=== PATIENT | male | born 1980 | race Caucasian/White ===

== ENCOUNTER 2019-02-09 19:33 | Emergency (ER) | payer OTHER, MEDICAID, SELFPAY ==
[2019-02-09 19:42] VITALS: BP 171/112; PULSE 77; RESP 16; TEMP 36; O2SAT 97; BMI 30.1
--- NOTE | 2019-02-09 19:47 | ED.FALL ---
HPI - Fall General Chief Complaint: Fall Stated Complaint: fall on 12th, back side hurts alot Time Seen by Provider: 02/09/19 19:41 Source: patient Mode of arrival: Ambulatory Limitations: no limitations History of Present Illness HPI Narrative: Patient is a 38-year-old male who approximately 10 days ago fell while walking down some stairs landing on his right hip. He states since then he has had pain in his right buttocks area. He has tried ibuprofen and massage without much improvement. He has been ambulatory since the event. Related Data Previous Rx's Medication Instructions Recorded cyclobenzaprine 10 mg tablet 10 mg PO HS #30 tab 05/17/18 hydrocodone 5 mg-acetaminophen 325 1 tab PO QID #30 tab 06/06/18 mg tablet Allergies Allergy/AdvReac Type Severity Reaction Status Date / Time venom-honey bee Allergy Mild Unverified 06/28/17 11:51 [BEE VENOM (HONEY BEE)] Pain Contract Allergy Unknown Uncoded 06/28/17 11:51 Review of Systems Constitutional Constitutional: Denies fever(s) Cardiovascular Cardiovascular: Denies chest pain and Denies dyspnea Respiratory Respiratory: Denies dyspnea Gastrointestinal Gastrointestinal: Denies abdominal pain Musculoskeletal Musculoskeletal: Denies tingling Comments: Right hip pain Integumentary/Breasts Comments: Bruising to the right hip Neurologic Neurologic: Denies tingling and Denies paresthesias Hematologic/Lymphatic Hematologic/Lymphatic: Denies easy bleeding and Denies easy bruising Patient History Medical History Back pain of thoracolumbar region (07/31/13) Carpal tunnel syndrome of right wrist (07/31/13) Compression fracture of thoracic vertebra (Inactive) Right shoulder pain (07/31/13) Spondylolisthesis at L5-S1 level (03/17/15) Surgical History (Updated 07/18/17 @ 05:11 by Catrina Sauer DO) History of spinal fusion Family History (Updated 03/17/14 @ 00:00 by Catrina Sauer DO) Father Diabetes mellitus CAD (coronary artery disease) Mother Ovarian cancer Sister Crohn disease alcohol intake frequency: holidays/special occasions only Substance Use Type: does not use Exam Initial Vital Signs Initial Vital Signs: Vital Signs Temperature 96.8 F L 02/09/19 19:42 Pulse Rate 77 02/09/19 19:42 Respiratory Rate 16 02/09/19 19:42 Blood Pressure 171/112 H 02/09/19 19:42 Pulse Oximetry 97 02/09/19 19:42 Const General: cooperative and comfortable Orientation: alert and awake Resp Effort & Inspection: normal respiratory effort Back/Spine/Pelvis Cervical Spine: No cervical spasm Thoracic/Lumbar Spine: No thoracic spinal tenderness and No lumbar spinal tenderness Sacroiliac Joints: tender to palpation left Skin Rashes: no rashes Neuro General: alert, awake and oriented x3 Cognition: normal cognition Speech: speech normal Gait: normal gait Extrem General: normal to inspection and capillary refill normal Course Orders Ordered: ED Orders 02/09/19 19:50 XR hip w pel if done RT 2V Stat Vital Signs Vital signs: Vital Signs - 8 hr 02/09/19 19:42 Temperature 96.8 F L Pulse Rate 77 Respiratory Rate 16 Blood Pressure 171/112 H Pulse Oximetry 97 MDM - Fall Imaging Data X-ray hip: Radiologist's impression: [address] [address] XRay Report Signed Patient: Fransico Osborn GMR#: [id number] : 1980Acct:[id number] Age/Sex: 38 / MDate of Service: 02/09/19 Loc: ED Accession Number: [id number] Procedure: XR hip w pel if done RT 2V Ordering Provider: Saul Shaw D.O. PROCEDURE: XR HIP W PEL IF DONE RT 2V INDICATIONS: fall with hip pain TECHNIQUE: AP pelvis with lateral view(s) of the right hip(s). COMPARISON: None. FINDINGS: Bones: No fractures or dislocations. Pelvic ring appears intact. No suspicious bony lesions. No significant arthritic change. Soft tissues: The visualized bowel gas pattern is normal. No suspicious soft tissue calcifications. IMPRESSION: No evidence acute bony abnormality of the pelvis and right hip Dictated by: Kai Carter M.D. on 02/09/2019 at 20:11 Approved by: Kai Carter M.D. on 02/09/2019 at 20:12 [facility] Narrative Medical decision making narrative: Patient neurovascular intact. No fractures on the x-rays. I do suspect a deep soft tissue bruise. Discusses the patient. Expressed understanding and agreement plan. Discharge Plan Departure Prescriptions: No Action cyclobenzaprine 10 mg tablet 10 mg PO HS Qty: 30 RF: 0 hydrocodone-acetaminophen [[place]] 5-325 mg tablet 1 tab PO QID Qty: 30 RF: 0
--- NOTE | 2019-02-09 19:50 | DI.RAD.S_ITS ---
PROCEDURE: XR HIP W PEL IF DONE RT 2V INDICATIONS: fall with hip pain TECHNIQUE: AP pelvis with lateral view(s) of the right hip(s). COMPARISON: None. FINDINGS: Bones: No fractures or dislocations. Pelvic ring appears intact. No suspicious bony lesions. No significant arthritic change. Soft tissues: The visualized bowel gas pattern is normal. No suspicious soft tissue calcifications. IMPRESSION: No evidence acute bony abnormality of the pelvis and right hip Dictated by: Kai Carter M.D. on 02/09/2019 at 20:11 Approved by: Kai Carter M.D. on 02/09/2019 at 20:12
[2019-02-09 20:29] VITALS: BP 166/90; PULSE 74; RESP 16; O2SAT 99
== END 2019-02-09 20:29 | disposition home or self-care (01) ==
PROVIDERS: Emergency Provider Emergency Medicine; Family Provider Family Medicine; PCP Family Medicine
DX: M25.551 Pain in right hip (principal); W10.9XXA Fall (on) (from) unspecified stairs and steps, initial encounter
CPT/HCPCS: 73502; 99282; 99283

== ENCOUNTER → 2019-10-25 08:44 | Outpatient (CLI) | payer OTHER, MEDICAID, SELFPAY ==
[2019-10-25 10:20] LABS: Alanine Aminotransferase 35 IU/L (<50); Albumin 4.5 g/dL (3.5-5.0); Albumin Globulin Ratio 1.6 (1.0-2.8); Alkaline Phosphatase 77 U/L (38-126); Aspartate Aminotransferase 30 IU/L (17-59); BUN Creatinine Ratio 17.6 (6-22); Bilirubin Total 0.8 mg/dL (0.2-1.3); Blood Urea Nitrogen 19 mg/dL (9-20); Carbon Dioxide 28 mmol/L (22-32); Chloride 104 mmol/L (98-107); Cholesterol 234 mg/dL (140-199); Estimated Glomerular Filt Rate > 60.0 mL/min (>60); Globulin 2.9 g/dL (1.7-4.1); Glucose 97 mg/dL (70-100); HDL Cholesterol 65 mg/dL (40-60); HEMOLYSIS < 15 (0-50); LDL Cholesterol Calculated 147 mg/dL (<100); Potassium 4.9 mmol/L (3.4-5.1); Sodium 137 mmol/L (137-145); Total Protein 7.4 g/dL (6.3-8.2); Triglycerides 112 mg/dL (35-150)
== END ==
PROVIDERS: Family Provider Family Medicine; PCP Family Medicine; Referring Provider Family Medicine; Visit Provider Family Medicine
DX: E66.9 Obesity, unspecified (principal)
CPT/HCPCS: 36415; 80053; 80061

== ENCOUNTER → 2020-04-14 08:38 | Outpatient (CLI) | payer OTHER, MEDICAID, SELFPAY ==
[2020-04-14 10:12] LABS: Alanine Aminotransferase 61 IU/L (<50); Albumin 4.4 g/dL (3.5-5.0); Albumin Globulin Ratio 1.3 (1.0-2.8); Alkaline Phosphatase 67 U/L (38-126); Aspartate Aminotransferase 40 IU/L (17-59); BUN Creatinine Ratio 16.7 (6-22); Bilirubin Total 0.7 mg/dL (0.2-1.3); Blood Urea Nitrogen 18 mg/dL (9-20); Calcium 9.5 mg/dL (8.4-10.2); Carbon Dioxide 32 mmol/L (22-32); Chloride 103 mmol/L (98-107); Cholesterol 187 mg/dL (140-199); Estimated Glomerular Filt Rate > 60.0 mL/min (>60); Globulin 3.3 g/dL (1.7-4.1); Glucose 100 mg/dL (70-100); HDL Cholesterol 46 mg/dL (40-60); HEMOLYSIS < 15 (0-50); LDL Cholesterol Calculated 116 mg/dL (<100); Potassium 4.6 mmol/L (3.4-5.1); Sodium 138 mmol/L (137-145); Total Protein 7.7 g/dL (6.3-8.2); Triglycerides 124 mg/dL (35-150)
[2020-04-23 11:13] LABS: Aldosterone/Renin Activity Rat 0.3 (0.0-30.0); Plama Renin, LC/MS/MS 16.282 ng/mL/hr (0.167-5.380)
== END ==
PROVIDERS: Family Provider Family Medicine; PCP Family Medicine; Referring Provider Family Medicine; Visit Provider Family Medicine
DX: I10 Essential (primary) hypertension (principal); E66.9 Obesity, unspecified
CPT/HCPCS: 36415; 80053; 80061; 82088; 84244

== ENCOUNTER → 2020-04-27 10:18 | Outpatient (CLI) | payer OTHER, MEDICAID, SELFPAY ==
[2020-04-27 11:15] LABS: COVID19 -Nasal RAPID Negative (Negative)
== END ==
PROVIDERS: Family Provider Family Medicine; PCP Family Medicine; Visit Provider Physician Assistant
DX: Z20.828 Contact with and (suspected) exposure to other viral communicable diseases (principal)
CPT/HCPCS: 87635

== ENCOUNTER → 2020-04-29 08:19 | Outpatient (CLI) | payer OTHER, MEDICAID, SELFPAY ==
--- NOTE | 2020-04-29 09:09 | PM.TREADMILL ---
Cardiac Stress Test Report Referral & Results Date Patient Seen: 04/29/20 Time Patient Seen: 09:00 Requesting provider: Catrina Sauer Indication: Cardiomyopathy Rest ECG: NSR Procedure Note: Today following both written and verbal informed consent, the patient was exercised according to a standard Kirk protocol. The patient exercised for a total of 10 minutes 24 seconds achieving a maximum heart rate of 173. Patient's maximum systolic blood pressure was 184. This was an estimated 12.8 METs. Normal hemodynamic response to exercise. No signs or symptoms of angina. Presenting symptoms not reproduced on exercise. Near normal exercise capacity (JAH +10% on active scale). No EKG changes. Impression: Low probability for ischemia. Clarke treadmill score of 10 is correlated with 97% 5 year survival rate from cardiac causes of mortality. Please note: Actual ECG tracings can be found in the PACS system.
== END ==
PROVIDERS: Family Provider Family Medicine; PCP Family Medicine; Referring Provider Family Medicine; Visit Provider Family Medicine
DX: I42.9 Cardiomyopathy, unspecified (principal); R06.00 Dyspnea, unspecified; I10 Essential (primary) hypertension; Z82.49 Family history of ischemic heart disease and other diseases of the circulatory system
CPT/HCPCS: 93016; 93017; 93018

== ENCOUNTER 2020-05-30 19:59 | Emergency (ER) | payer OTHER, MEDICAID, SELFPAY ==
[2020-05-30 20:17] VITALS: BP 136/76; PULSE 79; RESP 14; TEMP 36.6; O2SAT 98; BMI 31.0
--- NOTE | 2020-05-30 20:31 | DI.RAD.S_ITS ---
PROCEDURE: XR FINGER RT MIN 2V INDICATIONS: Cut middle finger on skylight that shattered TECHNIQUE: AP hand, 2 views of the 3rd finger(s) acquired. COMPARISON: None. FINDINGS: Bones: No fractures or dislocations. No suspicious bony lesions. Soft tissues: No suspicious soft tissue calcifications. No radiopaque foreign body. IMPRESSION: No visualized acute fracture or dislocation. However, if clinical concern and/or pain persist, short interval imaging followup in 7-10 days is recommended, as occult injury cannot be definitively excluded. Dictated by: Aniyah Richardson M.D. on 05/30/2020 at 20:43 Approved by: Aniyah Richardson M.D. on 05/30/2020 at 20:44
--- NOTE | 2020-05-30 22:37 | ED_ITS ---
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 Bleeding has been controlled and he is up-to-date on tetanus. He describes no other injuries Related Data Previous Rx's Medication Instructions Recorded cyclobenzaprine 10 mg tablet 10 mg PO HS #30 tab 10/25/19 hydrocodone 5 mg-acetaminophen 325 1 tab PO QID #30 tab 10/25/19 mg tablet terbinafine HCl 250 mg tablet 250 mg PO DAILY #14 tab 01/16/20 triamcinolone acetonide 0.1 % 1 applictn TOP BID #30 gram 01/16/20 topical cream amlodipine 5 mg tablet 5 mg PO DAILY #90 tab 04/01/20 losartan 50 mg tablet 50 mg PO DAILY #90 tab 04/01/20 cephalexin 500 mg PO Q8H #15 cap 05/30/20 Allergies Allergy/AdvReac Type Severity Reaction Status Date / Time venom-honey bee Allergy Mild Unverified 04/01/20 16:34 [BEE VENOM (HONEY BEE)] Pain Contract Allergy Unknown Uncoded 04/01/20 16:34 Review of Systems Review of Systems Narrative: Remainder of review is otherwise unremarkable Patient History Medical History Back pain of thoracolumbar region (07/31/13) Carpal tunnel syndrome of right wrist (07/31/13) Compression fracture of thoracic vertebra Dyspnea Essential hypertension Hyperlipidemia Right shoulder pain (07/31/13) Spondylolisthesis at L5-S1 level (03/17/15) Tinea corporis Surgical History History of spinal fusion Family History Father Diabetes mellitus CAD (coronary artery disease) Mother Ovarian cancer Sister Crohn disease Social History Smoking Status: Former smoker Smoking Status: Former smoker alcohol intake frequency: holidays/special occasions only Substance Use Type: does not use Exam Narrative Exam Narrative: General: Alert appropriate in no acute distress Respiratory: Able to speak in full sentences, no obvious respiratory distress Skin: No obvious rashes, warm and dry Neurologic: Grossly intact no obvious asymmetries or abnormalities Psych: appropriate insight and affect, cooperative Extremity: Right finger with shallow/flap like laceration over the pad of the distal finger. Initial Vital Signs Initial Vital Signs: Vital Signs Temperature 97.8 F 05/30/20 20:17 Pulse Rate 79 05/30/20 20:17 Respiratory Rate 14 05/30/20 20:17 Blood Pressure 136/76 05/30/20 20:17 Pulse Oximetry 98 05/30/20 20:17 Procedures Laceration Repair Right middle finger: Site: hand Side (If applicable): right Size (cm): 3 Description: flap Depth: simple, single layer Local Anesthetic: lidocaine 1% Amount of anesthesia used (mL): 4 Pre-repair: wound explored Skin layer closed with: nylon Size (cm): 4-0 Number of sutures: 5 Course Orders Ordered: Discontinued Medications Lidocaine HCl (Lidocaine 1% (Pf)) 4 ml INJ NOW ONE Stop: 05/30/20 22:42 Vital Signs Vital signs: Vital Signs - 8 hr 05/30/20 23:29 Temperature 98.2 F Pulse Rate 64 Respiratory Rate 16 Blood Pressure 139/87 Pulse Oximetry 97 MDM - Wound/Laceration Imaging Data XR hand: Radiologist's Impression: FINDINGS: Bones: No fractures or dislocations. No suspicious bony lesions. Soft tissues: No suspicious soft tissue calcifications. No radiopaque foreign body. IMPRESSION: No visualized acute fracture or dislocation. However, if clinical concern and/or pain persist, short interval imaging followup in 7-10 days is recommended, as occult injury cannot be definitively excluded. Dictated by: Aniyah Richardson M.D. on 05/30/2020 at 20:43 MDM Narrative Medical decision making narrative: 40-year-old gentleman with flap-like laceration to the pad of the middle finger right hand. Once anesthetized the w ound is explored there is a mild bit of debrided easily removed from under the flap. The flap is thin enough that it may well and that being simply a biologic Band-Aid rather than actually read hearing completely. Reviewed this possibility with the patient. He will keep a bandage over the finger until sutures are out in approximately a week. He is safe for home discharge Discharge Plan Departure Patient Disposition: Home Clinical Impression: Laceration Instructions: DI for Laceration Repair Activity Restrictions/Additional Instructions: Thank you for coming in today There were 5 stitches to attach the edges of the flap back down to the finger. There was a bit of debris underneath that I cleaned out without difficulty. I am going to suggest to complete 5 days of Keflex, and antibiotic, to prevent infection. You need to sutures out on or about June 14. It seems like it is increasingly red draining or hurting more those are all signs of infection and it would be appropriate to return to the ER for further evaluation. Prescription has been [facility] electronically to [facility] Prescriptions: New cephalexin 500 mg capsule 500 mg PO Q8H Qty: 15 RF: 0 No Action terbinafine HCl 250 mg tablet 250 mg PO DAILY Qty: 14 RF: 0 triamcinolone acetonide 0.1 % cream 1 applictn TOP BID Qty: 30 RF: 0 hydrocodone-acetaminophen [[place]] 5-325 mg tablet 1 tab PO QID Qty: 30 RF: 0 cyclobenzaprine 10 mg tablet 10 mg PO HS Qty: 30 RF: 0 losartan 50 mg tablet 50 mg PO DAILY Qty: 90 RF: 3 amlodipine 5 mg tablet 5 mg PO DAILY Qty: 90 RF: 3 Referrals: Catrina Sauer DO [Primary Care Provider] -
--- NOTE | 2020-05-30 23:28 | PC.NURSE ---
Pts finger was sutured by Dr. Blandon. Pt tolerated procedure well.
[2020-05-30 23:29] VITALS: BP 139/87; PULSE 64; RESP 16; TEMP 36.8; O2SAT 97
== END 2020-05-30 23:31 | disposition home or self-care (01) ==
PROVIDERS: Emergency Provider Emergency Medicine; Family Provider Family Medicine; PCP Family Medicine
DX: S61.212A Laceration without foreign body of right middle finger without damage to nail, initial encounter (principal); W26.9XXA Contact with unspecified sharp object(s), initial encounter
CPT/HCPCS: 12002; 73140; 99281; 99283

== ENCOUNTER → 2020-06-13 10:00 | Outpatient (CLI) | payer OTHER, MEDICAID, SELFPAY | PROVIDERS: Family Provider Family Medicine; PCP Family Medicine; Referring Provider Family Medicine; Visit Provider Family Medicine | DX: Z82.49 Family history of ischemic heart disease and other diseases of the circulatory system (principal); Z84.81 Family history of carrier of genetic disease | CPT/HCPCS: 36415 ==

== ENCOUNTER → 2020-06-18 10:11 | Outpatient (CLI) | payer OTHER, MEDICAID, SELFPAY ==
--- NOTE | 2020-06-18 10:14 | DI.ECHO.S_ITS ---
[facility]---------+ [facility] +---------+ : : [address] : : : : [id number] : : : : Phone: [phone]+ Echocardiogram Report + + :Name: CHELSEY REYNOLDS Study Date: 06/18/2020 Height: 69 in : :[facility] ReadingLocation: Weight: 210 lb : : Gender: Male BSA: 2.1 m2 : :: 1980 Age: 40 yrs BP: 156/92 mmHg: :Reason For Study: Cardiomyopathy, Dilated : :Ordering Physician: MAGDI, : :SOFIE Performed By: Rafael Elliott : :Referring: SOFIE FAIRBANKS : + + Interpretation Summary The left ventricle is normal in size and wall thickness. The ejection fraction is estimated to be 60-65%. The right ventricle is normal in size and function. No significant valvular pathology seen. The IVC is of normal diameter and collapses greater than 50% with a sniff. This suggests a low right atrial pressure of 3 mm Hg. Procedure: A two-dimensional transthoracic echocardiogram with color flow and Doppler was performed. The study quality was technically adequate. There is no prior echocardiogram noted for this patient. The patient was in sinus rhythm with heart rates between 57-74 bpm during the exam. Left Ventricle: The left ventricle is normal in size and wall thickness. There is no thrombus. Left ventricular systolic function is normal. The ejection fraction is estimated to be 60-65%. There are no focal wall motion abnormalities. MV E/A: 1.7 Med Peak E' Elvin: 9.2 cm/sec E/E' med: 12.1. Right Ventricle: The right ventricle is normal in size and function. Atria: Both atria are normal in size. There is no Doppler evidence for an interatrial shunt. Mitral Valve: The mitral valve is normal in structure and function. There is trace mitral regurgitation. Aortic Valve: The aortic valve is normal in structure and function. There is no aortic valve stenosis. No aortic regurgitation is present. Tricuspid Valve: The tricuspid valve is normal in structure and function. There is trace tricuspid regurgitation. The right ventricular systolic pressure is estimated to be at least 30 mmHg based on an estimated right atrial pressure of 3 mm Hg. Pulmonic Valve: The pulmonic valve is not well seen, but is grossly normal. There is trace pulmonic regurgitation. Great Vessels: The aortic root is normal size. The dimensions of the ascending aorta are normal. The IVC is of normal diameter and collapses greater than 50% with a sniff. This suggests a low right atrial pressure of 3 mm Hg. Pericardium/ Pleura There is no pericardial effusion. There is no pleural effusion. MMode/2D Measurements & Calculations LVIDd: 5.2 cm LVOT diam: 2.1 cm IVSd: 0.94 cm Ao root diam: 3.0 cm LVPWd: 0.93 cm asc Aorta Diam: 3.0 cm LV bailey. diameter/BSA (cm/m^2): 2.5 LA A2 area: 17.7 cm2 RA long axis: 4.1 cm LA A4 area: 16.9 cm2 RA area: 13.6 cm2 LA length (vol): 4.9 cm RA vol: 38.0 ml LA vol: 51.2 ml RA : 18.0 ml/m2 LA vol index: 24.3 ml/m2 IVC diam: 1.8 cm RVD1 (basal): 3.3 cm Doppler Measurements & Calculations Ao V2 max: 150.0 cm/sec LVOT Max Elvin: 140.5 cm/sec Ao V2 mean: 105.4 cm/sec LV V1 max P.9 mmHg Ao max P.0 mmHg LV V1 VTI: 28.2 cm Ao mean P.0 mmHg RUFINA(I,D): 3.2 cm2 Ao V2 VTI: 30.4 cm RUFINA(V,D): 3.2 cm2 sev ratio: 0.93 RUFINA indexed to BSA (cm^2/m^2): 1.5 MV E max elvin: 111.0 cm/sec TR max elvin: 259.9 cm/sec MV A max elvin: 65.3 cm/sec TR max P.0 mmHg MV E/A: 1.7 PA V2 max: 130.7 cm/sec Med Peak E' Elvin: 9.2 cm/sec PA V2 mean: 89.2 cm/sec E/E' med: 12.1 PA mean P.7 mmHg Lat Peak E' Elvin: 14.5 cm/sec PA pr(Accel): 43.7 mmHg E/E' lat: 7.6 E/e' average: 9.9 MV dec time: 0.20 sec SV(LVOT): 97.2 ml Reading Physician:05:46 PM
== END ==
PROVIDERS: Family Provider Family Medicine; PCP Family Medicine; Referring Provider Family Medicine; Visit Provider Family Medicine
DX: R06.00 Dyspnea, unspecified (principal); I10 Essential (primary) hypertension; Z82.49 Family history of ischemic heart disease and other diseases of the circulatory system
CPT/HCPCS: 93306

== ENCOUNTER → 2021-01-04 15:47 | Outpatient (CLI) | payer OTHER, MEDICAID, SELFPAY ==
[2021-01-04 16:58] LABS: COVID19 -Nasal RAPID POSITIVE (Negative)
== END ==
PROVIDERS: Family Provider Family Medicine; PCP Family Medicine; Visit Provider Physician Assistant
DX: U07.1 COVID-19 (principal)
CPT/HCPCS: 87635

== ENCOUNTER → 2021-01-04 16:55 | Outpatient (CLI) | payer OTHER, MEDICAID, SELFPAY ==
--- NOTE | 2021-01-04 16:57 | DI.RAD.S_ITS ---
PROCEDURE: XR CHEST 2V INDICATIONS: deep cough x1 week, home +COVID, pending PCR TECHNIQUE: 2 views of the chest were acquired. COMPARISON: None. FINDINGS: Surgical changes and devices: None. Lungs and pleura: Lungs are clear. No pleural effusions or pneumothorax. Mediastinum: Mediastinal contours are normal. Heart size is normal. Bones and chest wall: No suspicious bony abnormalities. Soft tissues appear unremarkable. IMPRESSION: No acute cardiopulmonary process demonstrated radiographically. Dictated by: Gopi Saldivar M.D. on 01/04/2021 at 17:11 Approved by: Gopi Saldivar M.D. on 01/04/2021 at 17:11
== END ==
PROVIDERS: Family Provider Family Medicine; PCP Family Medicine; Referring Provider Physician Assistant; Visit Provider Physician Assistant
DX: U07.1 COVID-19 (principal); R05.9 Cough, unspecified
CPT/HCPCS: 71046; 87635

== ENCOUNTER → 2021-09-23 15:58 | Outpatient (CLI) | payer OTHER, MEDICAID, SELFPAY ==
[2021-09-23 17:15] LABS: Alanine Aminotransferase 26 IU/L (<50); Albumin 4.2 g/dL (3.5-5.0); Albumin Globulin Ratio 1.3 (1.0-2.8); Alkaline Phosphatase 66 U/L (38-126); Aspartate Aminotransferase 28 IU/L (17-59); BUN Creatinine Ratio 14.3 (6-22); Bilirubin Total 0.6 mg/dL (0.2-1.3); Blood Urea Nitrogen 16 mg/dL (9-20); Calcium 8.8 mg/dL (8.4-10.2); Carbon Dioxide 26 mmol/L (22-32); Chloride 106 mmol/L (98-107); Cholesterol 227 mg/dL (140-199); Estimated Glomerular Filt Rate > 60 mL/min (>60); Globulin 3.2 g/dL (1.7-4.1); Glucose 75 mg/dL (70-100); HDL Cholesterol 48 mg/dL (40-60); HEMOLYSIS 17 (0-50); LDL Cholesterol Calculated 111 mg/dL (<100); Potassium 4.3 mmol/L (3.4-5.1); Sodium 142 mmol/L (137-145); Total Protein 7.4 g/dL (6.3-8.2); Triglycerides 340 mg/dL (35-150)
== END ==
PROVIDERS: Family Provider Family Medicine; PCP Family Medicine; Referring Provider Family Medicine; Visit Provider Family Medicine
DX: I10 Essential (primary) hypertension (principal); E78.5 Hyperlipidemia, unspecified
CPT/HCPCS: 36415; 80053; 80061

== ENCOUNTER 2022-05-25 00:06 | Emergency (ER) | payer OTHER, MEDICAID, SELFPAY ==
[2022-05-25 00:14] VITALS: BP 136/88; PULSE 73; RESP 17; TEMP 36.8; O2SAT 99
[2022-05-25] MEDS: PROPARACAINE 0.5% OPHTH SOL 1 DROPS EYE-LEFT (00:24)
[2022-05-25] MEDS: FLUORESCEIN 1 MG STRIP EYE-RIGHT (00:24)
--- NOTE | 2022-05-25 00:53 | ED_ITS ---
HPI - General Adult General Chief complaint: Eye Problems Stated complaint: something in LT eye possible metal or wood shaving Time Seen by Provider: 05/25/22 00:31 Source: patient Mode of arrival: Ambulatory Limitations: no limitations History of Present Illness HPI narrative: Patient is a 42-year-old male who is here for evaluation of potential foreign body in his left eye. Patient states that earlier the day he was working with both metal and wood. He was not wearing safety goggles at the time. He states he feels like there is something in his left eye. He is no prior eye surgeries. Related Data Previous Rx's Medication Instructions Recorded cyclobenzaprine 10 mg tablet 10 mg PO HS PRN muscle spasm #30 05/06/21 tabs hydrocodone 5 mg-acetaminophen 325 1 tab PO QID pain #30 tabs 02/05/22 mg tablet amlodipine 5 mg tablet 5 mg PO DAILY #90 tabs 04/27/22 losartan 50 mg tablet 50 mg PO DAILY #90 tabs 04/27/22 erythromycin 5 mg/gram (0.5 %) eye 0.5 inch EYE-LEFT TID 2 days #3.5 05/25/22 ointment grams Allergies Allergy/AdvReac Type Severity Reaction Status Date / Time venom-honey bee Allergy Severe Swelling Verified 05/25/22 00:24 [BEE VENOM (HONEY BEE)] of Lip/Tongue/Throat Review of Systems Eyes Eyes: Reports system reviewed and no additional complaints, except as documented ENT Ears, Nose, Mouth, and Throat: Reports system reviewed and no additional complaints, except as documented Integumentary/Breasts Skin/Breast: Reports system reviewed and no additional complaints, except as d ocumented Patient History Medical History Back pain of thoracolumbar region (07/31/13) Carpal tunnel syndrome of right wrist (07/31/13) Compression fracture of thoracic vertebra COVID-19 Essential hypertension Hyperlipidemia Obesity (BMI 30.0-34.9) Right shoulder pain (07/31/13) Spondylolisthesis at L5-S1 level (03/17/15) Surgical History History of spinal fusion Family History Father Diabetes mellitus CAD (coronary artery disease) Mother Ovarian cancer Sister Crohn disease Social History Smoking Status: Former smoker Smoking Status: Former smoker alcohol intake frequency: holidays/special occasions only Substance Use Type: does not use Exam Initial Vital Signs Initial Vital Signs: Vital Signs Temperature 98.2 F 05/25/22 00:14 Pulse Rate 73 05/25/22 00:14 Respiratory Rate 17 05/25/22 00:14 Blood Pressure 136/88 05/25/22 00:14 Pulse Oximetry 99 05/25/22 00:14 Oxygen Delivery Method Room Air 05/25/22 00:14 Const General: cooperative and healthy appearing Eyes Pupils: PERRL EOM: EOM intact bilaterally Other: Patient does have a metal foreign body in the left eye. No uptake with fluorescein staining. No signs of conjunctivitis. No indication open globe. Conjunctiva are unremarkable. Skin General: no rashes or lesions noted Procedures Foreign Body EYE Location: eye (L) Topical anesthetic used: proparacaine Foreign body: metal Evidence of corneal penetration: No Technique: cotton tip swab and electric gavi Procedure performed under: direct visualization with magnification and slit-lamp Post-procedure medication: ophthalmic antibiotic Patient tolerated procedure: well Complications: residual rust ring Course Orders Ordered: Discontinued Medications Diphtheria/Tetanus/Acell Pertussis (Diph,Pertuss(Acell),Tet Vac/Pf 0.5 Ml Syringe) 0.5 ml IM .ONCE ONE Stop: 05/25/22 00:10 Last Admin: 05/25/22 00:15 Dose: Not Given Documented By: BERNARD Erythromycin (Erythromycin Ophth 1 Gm Oint) 1 applic EYE-LEFT NOW ONE Stop: 05/25/22 00:54 Last Admin: 05/25/22 01:01 Dose: 1 applic Documented By: DAVID Fluorescein Sodium (Fluorescein 1 Mg Strip) 1 mg EYE-RIGHT NOW ONE Stop: 05/25/22 00:11 Last Admin: 05/25/22 00:24 Dose: 1 mg Documented By: RB Proparacaine HCl (Proparacaine 0.5% Ophth [place]) 1 drops EYE-LEFT PRN PRN PRN Reason: Pain, Mild (1-3) Last Admin: 05/25/22 00:24 Dose: 1 drops Documented By: RB Vital Signs Vital signs: Vital Signs - 8 hr 05/25/22 00:14 Temperature 98.2 F Pulse Rate 73 Respiratory Rate 17 Blood Pressure 136/88 Pulse Oximetry 99 Oxygen Delivery Method Room Air Medical Decision Making MDM Narrative Medical decision making narrative: Patient with a fairly obvious small foreign body in the left eye that was primarily removed with cotton tip applicator under direct visualization and magnification. There was a small residual piece there which was then evaluated under slit-lamp. This was the rust ring. Vast majority of this was removed with a bur. Patient tolerated the procedure well. There is no indication of perforation. An extensive review of the rest of his eye reveals no other foreign bodies either under the lower eyelid or under the upper eyelid. Will place the patient on erythromycin. He was given return precautions and follow- up instructions. He expressed understanding and agreement. Discharge Plan Departure Patient Disposition: Home Clinical Impression: Foreign body in eye Instructions: DI for Foreign Body in the Eye Activity Restrictions/Additional Instructions: I do recommend that you use the antibiotic ointment as directed. Contact your primary doctor for a follow-up. Return to the emergency department for any new or worsening symptoms. Prescriptions: New erythromycin 5 mg/gram (0.5 %) ointment 0.5 inch EYE-LEFT TID 2 Days Qty: 3.5 0RF No Action hydrocodone-acetaminophen 5-325 mg tablet 1 tab PO QID Qty: 30 0RF Rx Instructions: New Rx amlodipine 5 mg tablet 5 mg PO DAILY Qty: 90 0RF Rx Instructions: APPOINTMENT DUE FOR FURTHER REFILLS. 04/27/22 losartan 50 mg tablet 50 mg PO DAILY Qty: 90 0RF Rx Instructions: APPOINTMENT DUE FOR FURTHER REFILLS. 04/27/22 cyclobenzaprine 10 mg tablet 10 mg PO HS PRN (Reason: muscle spasm) Qty: 30 3RF Referrals: Latonya Jones DO [Primary Care Provider] - Stand Alone Forms: Patient Portal/API
[2022-05-25] MEDS: ERYTHROMYCIN OPHTH 1 GM OINT 1 APPLIC EYE-LEFT (01:01)
== END 2022-05-25 01:10 | disposition home or self-care (01) ==
PROVIDERS: Emergency Provider Emergency Medicine; Family Provider Family Medicine; PCP Family Medicine
DX: T15.92XA Foreign body on external eye, part unspecified, left eye, initial encounter (principal)
CPT/HCPCS: 65222; 99282

== ENCOUNTER → 2023-03-17 07:56 | Outpatient (CLI) | payer OTHER, MEDICAID, SELFPAY ==
--- NOTE | 2023-03-17 | DI.US.S_ITS ---
ULTRASOUND OF RIGHT BREAST AND AXILLA: 03/17/2023 CLINICAL: Palpable right breast lump. No prior exams were available for comparison. Ultrasound of the right breast axilla was performed. There is a 6.8 cm x 2.3 cm x 5.4 cm oval mass with a circumscribed margin in the right breast at 8 o'clock anterior depth 11 cm from the nipple. This correlates as palpated. No significant abnormalities were seen sonographically in the right axilla. IMPRESSION: PROBABLY BENIGN The 6.8 cm x 2.3 cm x 5.4 cm oval mass in the right breast is probably benign. This is most commonly a lipoma, however, some malignant masses such as liposarcoma can have a similar appearance. Clinical followup recommended. A follow-up ultrasound in 3 months is recommended. If there is a history of enlargement or concerning symptoms, consider sampling or advanced imaging with CT or MRI. This is discussed with the patient at time of exam. This exam was interpreted at Station ID: [id number]. Electronically Signed By: Kenney tubbs/:03/17/2023 08:24:49 letter sent: Followup Recommended Ultrasound BI-RADS: 3 Probably benign
== END ==
LOC: US 07:56
PROVIDERS: Family Provider Family Medicine; Referring Provider Family Medicine; Visit Provider Family Medicine
DX: R92.2 Inconclusive mammogram (principal); N63.13 Unspecified lump in the right breast, lower outer quadrant
CPT/HCPCS: 76642

== ENCOUNTER → 2023-03-22 09:05 | Outpatient (CLI) | payer OTHER, MEDICAID, SELFPAY ==
[2023-03-22 10:39] LABS: Add Manual Diff / Slide Review NO; Basophils Absolute Auto 100 /uL (0-100); Basophils Percent Auto 0.9 % (0-2); Eosinophils Absolute Auto 500 /uL (0-450); Eosinophils Percent Auto 3.8 % (2-4); Hematocrit 44.4 % (41-53); Hemoglobin 15.1 g/dL (13.5-17.5); Lymphocytes Absolute Auto 2000 /uL (1100-4500); Lymphocytes Percent Auto 16.6 % (25-40); Mean Corpuscular HGB Conc 34.1 % (30-36); Mean Corpuscular Hemoglobin 29.4 PG (26-34); Mean Corpuscular Volume 86.2 fL (80-100); Monocytes Absolute Auto 900 /uL (0-900); Monocytes Percent Auto 7.5 % (3-14); Neutrophils Absolute Auto 8600 /uL (1500-7000); Neutrophils Percent Auto 71.2 % (50-75); Platelet Count 265 X10^3/uL (150-400); Red Blood Cell Count 5.15 X10^6/uL (4.5-5.9); Red Cell Distribution Width 13.8 % (11.6-14.8); White Blood Cell Count 12.1 X10^3/uL (4.5-11.0)
[2023-03-22 10:52] LABS: Hemoglobin A1C% w Est Avg Glu 5.7 % (4.0-6.0)
[2023-03-22 11:23] LABS: Alanine Aminotransferase 31 IU/L (<50); Albumin 4.2 g/dL (3.5-5.0); Albumin Globulin Ratio 1.3 (1.0-2.8); Alkaline Phosphatase 85 U/L (38-126); BUN Creatinine Ratio 18.3 (6-22); Bilirubin Total 0.7 mg/dL (0.2-1.3); Blood Urea Nitrogen 19 mg/dL (9-20); Calcium 9.7 mg/dL (8.4-10.2); Carbon Dioxide 25 mmol/L (22-32); Chloride 103 mmol/L (98-107); Cholesterol 239 mg/dL (140-199); Estimated Glomerular Filt Rate > 60 mL/min (>60); Globulin 3.2 g/dL (1.7-4.1); Glucose 93 mg/dL (70-100); HDL Cholesterol 56 mg/dL (40-60); HEMOLYSIS < 15 (0-50); LDL Cholesterol Calculated 140 mg/dL (<100); Potassium 4.6 mmol/L (3.4-5.1); Sodium 137 mmol/L (137-145); Total Protein 7.4 g/dL (6.3-8.2); Triglycerides 216 mg/dL (35-150)
[2023-03-24 16:04] LABS: Aspartate Aminotransferase 25 IU/L (17-59)
== END ==
LOC: LAB 09:06
PROVIDERS: Family Provider Family Medicine; PCP Family Medicine; Referring Provider Family Medicine; Visit Provider Family Medicine
DX: E78.5 Hyperlipidemia, unspecified (principal); E66.9 Obesity, unspecified; I10 Essential (primary) hypertension
CPT/HCPCS: 36415; 80053; 80061; 83036; 85025

== ENCOUNTER 2023-04-12 10:51 | Day surgery (SDC) | payer OTHER, MEDICAID, SELFPAY ==
[2023-04-10 08:38] VITALS: BMI 34.4
--- NOTE | 2023-04-11 10:09 | PM.PREOP ---
Pre-operative Note Interval Note History & Physical reviewed/Exam performed by Physician: Yes Changes to H&P: No
[2023-04-12] VITALS (7 sets, daily range): BP systolic 136–162; BP diastolic 81–104; PULSE 55–73; RESP 16–18; TEMP 36.2–36.4; O2SAT 95–96; BMI 33.7
--- NOTE | 2023-04-12 | PATH_ITS ---
[facility] Accession Number: [id number] No. of containers..01 Tissue . 01 Material submitted: . chest - RIGHT CHEST . 01 Diagnosis: Right Chest, Biopsy: Mature adipose tissue consistent with lipoma. [facility] 04/14/2023 1045 Local . 01 Comment: The histologic material was reviewed with Dr. Jaime Torrez, who concurs. . 01 Electronically signed: . Jovanna White MD, Dermatopathologist NPI- [id number] . 01 Gross description: . The specimen is received in formalin labeled with the patient's name, , and right chest soft tissue mass, consists of a yellow, lobulated soft tissue fragment measuring 9.3 x 8.4 x 3.9 cm. The specimen is inked blue, and sectioning reveals a yellow, lobulated, unremarkable cut surface. [employer] sections are submitted in cassettes A1-A2. ([id number]) /MRV 04/13/2023 1319 Local . 01 Pathologist provided ICD-10: D17.9 . 01 CPT . 660671 Specimen Comment: A courtesy copy of this report has been sent to [phone] Performed at: 01 [facility] [address] [place] [address] [address], [place], [place] [id number] MD Rome Miles MD Phone: [phone]
--- NOTE | 2023-04-12 11:11 | SUR.PREOP ---
Time out 1050. start time 1052 . Monitoring initiated and maintained throughout procedure. Oxygen and medications given by anesthesiologist. Patient remained stable throughout procedure, no adverse reactions noted. Block end time 1107.
[2023-04-12] MEDS: LACTATED RINGERS 1,000 ML 21 ML IV (12:17)
[2023-04-12] MEDS: CEFAZOLIN 2 GM/100 ML PREMIX 100 ML IV (14:38)
--- NOTE | 2023-04-12 15:02 | SUR.OPER ---
Lateral on a ordonez bag, head on folded blankets and gel donut per anesthesia, gel axillary roll in place, bottom leg bent with gel pad under knee to foot, upper leg straight and supported with pillows. Upper arm supported by pillows and secured over bottom arm to padded arm board. Safety belt at hip, tape over blanket lower legs.
[2023-04-12] MEDS: BUPIVACAINE 0.25% (PF) VIAL 30 ML INJ (15:13)
--- NOTE | 2023-04-12 15:56 | P.OP_ITS ---
Operative Date/Time/Diagnoses Date of procedure: 04/12/23 Time of procedure: 15:56 Pre-op diagnosis: Right chest wall mass Post-op diagnosis: same Procedure & Clinicians Procedure: Excision right chest wall mass 10 cm Same procedure as scheduled: Yes Indications: Symptomatic enlarging right chest wall mass Surgeon: Junito Sanford Click Yes if Unassisted: Yes Anesthesia Type: General Operative Notes Findings: 10 cm soft tissue mass consistent with lipoma Specimen(s): other (Right chest wall mass) Estimated Blood Loss (mL): 10 Procedure in detail: Patient was brought to the operating room placed supine on the table. Bilateral lower extremity compression devices were applied. General anesthesia was induced and he was intubated with a endotracheal tube. He was then placed into the left lateral decubitus position using a ordonez bag and appropriately padded with an axillary roll. Was then prepped and draped in sterile fashion. A time- out was performed. He received Ancef prior to skin incision. 0.25% bupivacaine was infiltrated into the skin over the soft tissue mass involving the right lateral chest. The soft tissue mass was readily palpable. Incision over the soft tissue mass was made with a knife and the subcutaneous tissues were divided. The mass was encountered it was grasped and then it was dissected out circumferentially. Mass was then removed in its entirety and passed off the field as specimen, its appearance was consistent with a lipoma. Hemostasis was achieved. The subcutaneous tissue was closed with Vicryl suture and the skin closed Monocryl followed by Dermabond. Complications: none Post-operative Condition: stable Disposition: same day surgery
== END 2023-04-12 16:07 | disposition home or self-care (01) ==
PROVIDERS: Family Provider Family Medicine; PCP Family Medicine; Referring Provider Surgery; Visit Provider Surgery
PROC: (CPT 21552; principal; 2023-04-12 12:45)
DX: R22.2 Localized swelling, mass and lump, trunk (principal)
CPT/HCPCS: 21552; J0690; J1100; J1170; J1885; J2250; J2405; J2704; J3010

== ENCOUNTER → 2023-10-26 10:29 | Outpatient (CLI) | payer OTHER, MEDICAID, SELFPAY ==
[2023-10-26 11:38] LABS: Estimated Glomerular Filt Rate > 60 mL/min (>60)
== END ==
PROVIDERS: Radiology Diagnostic Radiology; PCP Family Medicine; Referring Provider Family Medicine; Visit Provider Family Medicine
DX: K46.9 Unspecified abdominal hernia without obstruction or gangrene (principal)
CPT/HCPCS: 36415; 82565

== ENCOUNTER → 2023-10-30 07:13 | Outpatient (CLI) | payer OTHER, MEDICAID, SELFPAY ==
--- NOTE | 2023-10-30 07:15 | DI.CT.S_ITS ---
PROCEDURE: CT ABDOMEN PELVIS W CON INDICATIONS: Hernia TECHNIQUE: After the administration of intravenous contrast, axial sections acquired from the lung bases to the pubic symphysis. Coronal and sagittal reformats were performed. For radiation dose reduction, the following was used: automated exposure control, adjustment of mA and/or kV according to patient size. COMPARISON: None. FINDINGS: Lower thorax: The lung bases are clear. Heart size normal. No hiatal hernia. Liver: Normal in size and attenuation. No contour deformity present. Biliary system: No calcified cholelithiasis or pericholecystic inflammation. No intra or extrahepatic bile duct dilatation. Pancreas: Unremarkable without mass or inflammation evident. Spleen: Normal in size and density. Adrenals: Normal morphology and density. Reproductive system: Unremarkable as visualized. Urinary system: Normal renal size and attenuation. No renal calculi, hydronephrosis, or solid mass present. Urinary bladder unremarkable. Gastrointestinal system: The bowel is unremarkable without evidence of bowel obstruction or inflammation. The stomach appears unremarkable. Appendix: No findings to suggest acute appendicitis. Peritoneal spaces: No mesenteric or retroperitoneal adenopathy. No free air. No free fluid. Vasculature: The IVC, aorta and iliac vasculature are unremarkable. Abdominal wall: Small periumbilical ventral hernia contains a loop small bowel without incarceration. No bowel obstruction. Small left inguinal hernia noted as well Musculoskeletal: Normal bone mineralization. No acute fractures. IMPRESSION: Small wide-mouth periumbilical hernia contains a loop of bowel without incarceration or obstruction. Small left inguinal hernia contains fat without bowel involvement. Approved by: Jovanni Duncan M.D. on 10/30/2023 at 21:23
== END ==
PROVIDERS: PCP Family Medicine; Referring Provider Family Medicine; Visit Provider Family Medicine
DX: K42.9 Umbilical hernia without obstruction or gangrene (principal); K40.90 Unilateral inguinal hernia, without obstruction or gangrene, not specified as recurrent
CPT/HCPCS: 74177; Q9967

== ENCOUNTER 2023-12-27 10:13 | Day surgery (SDC) | payer OTHER, MEDICAID, SELFPAY ==
[2023-12-25 12:41] VITALS: BMI 32.3
[2023-12-27] VITALS (7 sets, daily range): BP systolic 115–139; BP diastolic 75–89; PULSE 61–95; RESP 10–19; TEMP 36.3–37.1; O2SAT 94–99; BMI 32.3
[2023-12-27] MEDS: ACETAMINOPHEN 325 MG TABLET 975 MG PO (10:37)
[2023-12-27] MEDS: LACTATED RINGERS 1,000 ML 42 ML IV ×2 (10:38→13:05)
--- NOTE | 2023-12-27 11:19 | P.HP_ITS ---
History of Present Illness History of Present Illness Date Patient Seen: 12/27/23 Time Patient Seen: 11:19 Chief complaint: Open umbilical lap L possible R inguinal hernia Narrative: 43 y.o man with umbilical and left inguinal hernia here for elective laparoscopic left possible bilateral inguinal hernia repair and open umbilical hernia repair. No interval change in health. [facility] Medical History Obesity (BMI 30.0-34.9) COVID-19 Hyperlipidemia Essential hypertension Spondylolisthesis at L5-S1 level (03/17/15) Right shoulder pain (07/31/13) Carpal tunnel syndrome of right wrist (07/31/13) Back pain of thoracolumbar region (07/31/13) Compression fracture of thoracic vertebra Surgical History History of spinal fusion Family History Father Diabetes mellitus CAD (coronary artery disease) Mother Ovarian cancer Sister Crohn disease Social History household members: significant other Smoking Status: Former smoker alcohol intake: current Meds Home Medications and Allergies Home Medications Medication Instructions Recorded Confirmed Type cyclobenzaprine 10 mg tablet 10 mg PO HS PRN muscle spasm #30 10/30/23 12/27/23 Rx tabs hydrocodone 5 mg-acetaminophen 325 1 tab PO QID PRN pain #30 tabs 10/30/23 12/27/23 Rx mg tablet amlodipine 5 mg tablet 5 mg PO DAILY #90 tabs 11/21/23 12/27/23 Rx losartan 50 mg tablet 50 mg PO DAILY #90 tabs 11/21/23 12/27/23 Rx Allergies Allergy/AdvReac Type Severity Reaction Status Date / Time venom-honey bee Allergy Severe Swelling Verified 12/27/23 10:31 [BEE VENOM (HONEY BEE)] of Lip/Tongue/Throat Exam Vital Signs (past 8 hours): - 12/27/23 10:49 Temperature 97.3 F L Pulse Rate 66 Respiratory Rate 16 Blood Pressure 139/89 Pulse Oximetry 95 Oxygen Delivery Method Room Air Oxygen Delivery Method Room Air Narrative Exam Narrative: Gen-Adult man alert and oriented Assessment & Plan Assessment and plan (1) Left inguinal hernia: Status: Acute (2) Umbilical hernia: Qualifiers: Obstruction and gangrene presence: without obstruction or gangrene Qualified Code(s): K42.9 - Umbilical hernia without obstruction or gangrene Status: Acute Assessment & Plan narrative: 43 y.o man with umbilical and left inguinal hernia here for elective laparoscopic left possible bilateral inguinal hernia repair and open umbilical hernia repair. Overview of operation discussed. Operative risks including but not limited to infection, hemorrhage, reoccurrence pain reviewed. Questions have been answered. he provides his consent to proceed. Time-Based Coding :: [TOTAL MINUTES] spent with patient and on the chart (including review of chart, obtaining history, exam, reviewing outside data, placing orders, documenting exam and treatment plan, and counseling patient) on [DATE].
[2023-12-27] MEDS: CEFAZOLIN 2 GM/100 ML PREMIX 100 ML IV (11:53)
--- NOTE | 2023-12-27 12:08 | SUR.OPER ---
Supine on padded OR bed, head on pillow, arms padded and tucked at sides, legs uncrossed, safety belt at thigh, tape over blanket over lower legs .
[2023-12-27] MEDS: BUPIVACAINE LIPOSOME 266 MG/20 ML VIAL INJ (12:12)
[2023-12-27] MEDS: BUPIVACAINE 0.25% (PF) VIAL 30 ML INJ (13:27)
--- NOTE | 2023-12-27 17:05 | P.OP_ITS ---
Operative Date/Time/Diagnoses Date of procedure: 12/27/23 Time of procedure: 17:05 Pre-op diagnosis: Umbilical hernia, bilateral inguinal hernia Post-op diagnosis: same Procedure & Clinicians Procedure: Laparoscopic repair of bilateral inguinal hernia, open repair of umbilical hernia Same procedure as scheduled: Yes Indications: 43-year-old man with symptomatic inguinal and umbilical hernia here for elective repair Surgeon: Junito Sanford Sales Merchandiser: Jarrod Mccall Anesthesia Type: General Operative Notes Findings: Large fat containing indirect left inguinal hernia. Small direct defect on the right. Fascial defect at umbilicus 4 cm Specimen(s): none sent Estimated Blood Loss (mL): 20 Procedure in detail: The patient was brought to the operating room and placed supine on the table. Bilateral sequential compression devices were applied. General anesthesia was induced and they were intubated with an endotracheal tube. A schmidt cath was placed in sterile fashion. They 2 g Ancef prior to skin incision. They were prepped and draped in sterile fashion. A time out was performed. The skin was infiltrated with 0.25% bupivicaine. A 1 cm infra umbilical curvilinear incision was made. The fascia was sharply incised and the abdomen entered traumatically. A 10mm balloon port was placed and pneumoperitoneum was established at 15mm Hg. Inspection of the abdomen demonstrated no evidence of injury upon entry. Two 5 mm ports were then placed under direct visualization in the right and left lower quadrant lateral to the rectus muscle. Large left indirect hernia and a small right direct defect were seen. Starting on the left side the peritoneum 4 cm superior to the deep inguinal ring between the medial umbilical ligament and the anterior superior iliac spine was incised. The medial preperitoneal dissection was carried out into the space of Retzius bluntly, the bladder was swept inferiorly, the pubis and Lj's ligament were identified. Next attention was turned towards the lateral aspect of the peritoneal flap. The preperitoneal fat with the testicular vessels was carefu lly dissected off the inferior peritoneal flap. The cord was carefully inspected there was a large fat containing indirect hernia which was skeltonized off the cord preserving the testicular vessels and the vas deferns. No findings of a direct hernia defect.. A large Bard 3D Max mesh was then placed into the abdomen and positioned such that the myopectineal orifice was completely covered with good overlap on all sides. The peritoneal flap was then repositioned back to its original position and a running V lock suture was used to close the peritoneum such that no bowel could herniate into the preperitoneal space. The area was examined for hemostasis. Next the right side was addressed. The peritoneum 4 cm superior to the deep inguinal ring between the medial umbilical ligament and the anterior superior iliac spine was incised. The medial preperitoneal dissection was carried out into the space of Retzius bluntly, the bladder was swept inferiorly, the pubis and Lj's ligament were identified. Next attention was turned towards the lateral aspect of the peritoneal flap. The preperitoneal fat with the testicular vessels was carefully dissected off the inferior peritoneal flap. The cord was carefully inspected there was no evidence of indirect defect or cord lipoma. The attachements to the direct hernia sac were divided and the direct defect was reduced. A large Bard 3D Max mesh was then placed into the abdomen and positioned such that the myopectineal orifice was completely covered with good overlap on all sides. The peritoneal flap was then repositioned back to its original position and a running V lock suture was used to close the peritoneum such that no bowel could herniate into the preperitoneal space. The area was examined for hemostasis. Using blunt dissection the umbilical hernia sac was freed beneath the fascia defect in order to accomodate the mesh. The fascia defect was 4 cm in maximal diameter. A Bard Ventralex ST hernia patch 8 cm was inserted beneath the fascia defect and above the peritoneum in a sublay position. The mesh was anchored in multiple locations using Ethibond suture to the fascia and the fascial defect was closed over the mesh. The umbilical skin was tacked to the subcutaneous tissues and then the remainder of the subcutaneous tissues were reapproximated using 3 0 Vicry,l skin closed with 4 0 Monocryl followed by the application of Dermabond. Sponge instrument count at the end of the operation was correct. Patient tolerated procedure well was extubated and transferred to postoperative care unit in stable condition. Complications: none Post-operative Condition: stable Disposition: same day surgery
== END 2023-12-27 14:23 | disposition home or self-care (01) ==
PROVIDERS: PCP Family Medicine; Referring Provider Surgery; Visit Provider Surgery
PROC: (CPT 49650; principal; 2023-12-27 12:15)
PROC: 0YQ64ZZ Repair Left Inguinal Region, Percutaneous Endoscopic Approach (ICD-10-PCS; CPT 49650; 2023-12-27 12:15)
DX: K40.20 Bilateral inguinal hernia, without obstruction or gangrene, not specified as recurrent (principal); K42.9 Umbilical hernia without obstruction or gangrene
CPT/HCPCS: 49650; 82962; C9290; J0690; J1100; J1171; J1885; J2405; J2704; J3010

== ENCOUNTER → 2024-05-29 15:29 | Outpatient (CLI) | payer OTHER, SELFPAY ==
--- NOTE | 2024-05-29 15:30 | DI.US.S_ITS ---
PROCEDURE: US SCROTUM INDICATIONS: Scrotal and testicular swelling TECHNIQUE: Real-time scanning was performed of the scrotum and testicles, with image documentation. Color and pulse Doppler interrogation was performed of both testicles. COMPARISON: None. FINDINGS: Right: Testicle is normal in size at 4.9 x 2.9 x 3 point cm, and homogenous in echotexture. Epididymis is normal in overall size and morphology. Moderate hydrocele with low-level internal echoes. No varicoceles. Mild scrotal thickening.. Left: Testicle is normal in size at 5.1 x 3.0 x 3.1 cm, and homogeneous in echotexture. Epididymis is normal in overall size and morphology. Moderate hydrocele with low-level internal echoes. No varicoceles. Moderate scrotal thickening. Doppler: Color and pulse Doppler demonstrate normal and symmetric arterial flow in both testicles. IMPRESSION: 1. Moderate bilateral hydroceles with internal debris. 2. Mild-moderate scleral thickening, likely reactive to the hydroceles. 3. No other acute sonographic abnormality of the testes. Dictated by: Angelo Oliveira M.D. on 05/31/2024 at 14:02 Approved by: Angelo Oliveira M.D. on 05/31/2024 at 14:13
== END ==
LOC: US 15:29
PROVIDERS: PCP Family Medicine; Referring Provider Surgery; Visit Provider Surgery
DX: N50.89 Other specified disorders of the male genital organs (principal); N43.3 Hydrocele, unspecified
CPT/HCPCS: 76870